=== PATIENT | male | born 1970 | race African-American/Black ===

== ENCOUNTER 2018-08-06 11:55 | Emergency (ER) | payer OTHER ==
[2018-08-06 12:00] VITALS: BMI 27.8
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
[2018-08-06 14:53] LABS: BASO % 0.5 % (0-2.0); EOS % 0.6 % (0-4.5); HEMATOCRIT 42.3 % (35.4-49); LYMPH % 13.9 % (8-40); MCH 28.7 pg (25.7-33.7); MCHC 33.2 g/dl (32.0-35.9); MEAN CELL VOLUME 86.4 fl (80-96); MEAN PLT VOLUME 7.3 fl (7.5-11.1); MONO % 5.7 % (3.8-10.2); NEUT % 79.3 % (42.8-82.8); PLATELET COUNT 382 K/MM3 (134-434); RBC 4.89 M/mm3 (4.00-5.60); RDW 12.3 % (11.9-15.9); WHITE BLOOD COUNT 12.7 K/mm3 (4.0-10.0)
[2018-08-06 15:13] LABS: ALBUMIN 3.8 g/dl (3.4-5.0); ANION GAP 8 MMOL/L (8-16); BILIRUBIN,TOTAL 0.6 mg/dL (0.2-1.0); BLOOD UREA NITROGEN 22 mg/dL (7-18); CHLORIDE 107 mmol/L (98-107); CO2 27 mmol/L (21-32); CREATININE 0.9 mg/dL (0.7-1.3); GLUCOSE,RANDOM 90 mg/dL (74-106); SGPT/ALT 24 U/L (12-78); SODIUM 142 mmol/L (136-145); TOT PROT 8.2 g/dl (6.4-8.2)
[2018-08-06 15:15] LABS: ALK PHOS 128 U/L (45-117)
[2018-08-06 15:16] LABS: POTASSIUM 5.1 mmol/L (3.5-5.1); SGOT/AST 36 U/L (15-37)
[2018-08-06] MEDS ORDERED: PIPERACILLIN/TAZOB 3.375 GM 3.375 GM in DEXTROSE 5%-WATER - 50 ML IVPB ONE (15:33)
[2018-08-06] MEDS ORDERED: SODIUM CHLORIDE 1,000 ML IV STA (15:35)
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
[2018-08-06] MEDS ORDERED: SILVER SULFADIAZINE 1% TOP CREAM 50 GM JAR TP ONE (15:58)
[2018-08-06] MEDS ORDERED: PIPERACILLIN/TAZOB 3.375 GM 3.375 GM/50 ML BAG IVPB ONE (15:59)
[2018-08-06] MEDS ORDERED: morphine CARPU-JECT 4 MG/1 ML DISP.SYRIN IVPUSH ONE (16:32)
[2018-08-06] MEDS ORDERED: morphine SULFATE 4 MG/ML VIAL ONE (16:38)
[2018-08-06 17:05] VITALS: BP 149/85; PULSE 65; TEMP 98.4
== END 2018-08-06 17:47 | disposition short-term general hospital (02) ==
LOC: JER 11:55
PROC: 2W2QX4Z Dressing of Right Lower Leg using Bandage (ICD-10-PCS; principal; 2018-08-06)
PROC: 2W2SX4Z Dressing of Right Foot using Bandage (ICD-10-PCS; 2018-08-06)
PROC: 3E0337Z Introduction of Electrolytic and Water Balance Substance into Peripheral Vein, Percutaneous Approach (ICD-10-PCS; 2018-08-06)
PROC: 3E03329 Introduction of Other Anti-infective into Peripheral Vein, Percutaneous Approach (ICD-10-PCS; 2018-08-06)
PROC: 3E033NZ Introduction of Analgesics, Hypnotics, Sedatives into Peripheral Vein, Percutaneous Approach (ICD-10-PCS; 2018-08-06)
DX: T25.391A Burn of third degree of multiple sites of right ankle and foot, initial encounter (principal); L03.115 Cellulitis of right lower limb; T31.0 Burns involving less than 10% of body surface; X12.XXXA Contact with other hot fluids, initial encounter; Y93.89 Activity, other specified; Y92.69 Other specified industrial and construction area as the place of occurrence of the external cause; Y99.0 Civilian activity done for income or pay
CPT/HCPCS: 36415; 73610-TC-RT-FY; 73630-TC-RT-FY; 80053; 85025; 99283-25; J7030